=== PATIENT | female | born 1975 | race Two or more races ===

== ENCOUNTER 2017-11-22 12:36 | Inpatient (IN) | payer SELFPAY ==
[~2017-11-22] VITALS: Ht 162.6 cm; Wt 66.7 kg
[2017-11-22 15:23] LABS: CHLORIDE 104 mEq/L (98-107)
[2017-11-22 15:25] LABS: INR 1.1; PROTHROMBIN TIME 11.1 sec (9.4-11.6)
[2017-11-22 15:30] LABS: BASOPHILS % 0.8 % (0.0-2.0); HEMATOCRIT. 37.3 % (36.0-48.0); HEMOGLOBIN. 12.8 g/dL (12.0-16.0); LYMPHOCYTES % 39.7 % (20.0-50.0); MEAN CORPUSCULAR HEMOGLOBIN 28.8 pg (28.0-32.0); MEAN CORPUSCULAR VOLUME 84.3 fL (81.0-99.0); MONOCYTES % 7.7 % (2.0-8.0); NEUTROPHILS % 50.8 % (40.0-76.0); PLATELET 244 x1000/uL (130-400); RED BLOOD CELL COUNT 4.42 mill/uL (4.2-5.4); RED CELL DISTRIBUTION WIDTH 13.3 % (11.6-14.6)
[2017-11-22 15:32] LABS: AMMONIA 20 uMol/L (<32)
[2017-11-22 15:36] LABS: B-HCG QUANTITATIVE < 1 mIU/mL (<3)
[2017-11-22] MEDS ORDERED: ACETAMINOPHEN 325MG TABLET PO ONE (16:30)
[2017-11-22 16:59] LABS: CLARITY URINE CLEAR (CLEAR); COLOR URINE YELLOW (YELLOW); KETONES URINE NEGATIVE (NEGATIVE); LEUKOCYTE ESTERASE URINE 3+ (NEGATIVE); NITRITE URINE NEGATIVE (NEGATIVE); OCCULT BLOOD URINE 2+ (NEGATIVE); PROTEIN URINE TRACE (NEGATIVE); SPECIFIC GRAVITY URINE 1.018 (1.005-1.030); UROBILINOGEN URINE 0.2 E.U./dL (0.2-1.0)
[2017-11-22 17:16] LABS: *AMPHETAMINES SCREEN URINE NEGATIVE (NEGATIVE); *BARBITURATES SCREEN URINE NEGATIVE (NEGATIVE); *BENZODIAZEPINES SCREEN URINE NEGATIVE (NEGATIVE); *COCAINE SCREEN URINE NEGATIVE (NEGATIVE); METHADONE URINE SCREEN NEGATIVE (NEGATIVE)
[2017-11-22 17:17] LABS: CANNABINOID URINE SCREEN NEGATIVE (NEGATIVE); PHENCYCLIDINE URINE SCREEN NEGATIVE (NEGATIVE)
[2017-11-22 17:19] LABS: OPIATES URINE SCREEN NEGATIVE (NEGATIVE)
[2017-11-22] MEDS ORDERED: ACETAMINOPHEN 325MG TABLET PO NR (18:45)
[2017-11-22] MEDS ORDERED: LEVOFLOXACIN 500MG PREMIX 100 ML IV ONE (19:15)
[2017-11-22 20:50] VITALS: BP 142/92
[2017-11-22] MEDS: SODIUM CHLORIDE 0.9% 1,000 ML IV SCH (23:45)
[2017-11-23] VITALS: BP 118/80
[2017-11-23] MEDS ORDERED: HYDROCODONE/ACETAMINOPHEN 5/325MG TABLET PO PRN (00:15)
[2017-11-23] MEDS ORDERED: ACETAMINOPHEN 650MG/20.3ML UDC GT PRN (00:15)
[2017-11-23] MEDS ORDERED: MAGNESIUM/ALUMINUM HYDROXIDE/SIMETHICONE 30ML UDC PO PRN (00:15)
[2017-11-23] MEDS ORDERED: IPRATROPIUM/ALBUTEROL 0.5-3(2.5)MG/3ML NEB INH PRN ×2 (00:15→00:30)
[2017-11-23] MEDS ORDERED: GUAIFENESIN 200MG/10ML SUGAR FREE UDC PO PRN (00:15)
[2017-11-23] MEDS ORDERED: DOCUSATE SODIUM 100MG CAPSULE PO PRN (00:15)
[2017-11-23] MEDS ORDERED: ACETAMINOPHEN 650MG SUPP PR PRN (00:15)
[2017-11-23] MEDS ORDERED: NA PHOS,M-B/NA PHOS,DI-BA ENEMA 118ML PR PRN (00:15)
[2017-11-23] MEDS ORDERED: ONDANSETRON HCL 4MG/2ML VIAL IV PRN (00:15)
[2017-11-23] MEDS ORDERED: DIPHENHYDRAMINE 50MG/ML VIAL IV PRN (00:15)
[2017-11-23] MEDS ORDERED: CLONIDINE 0.1MG TABLET PO PRN (00:15)
[2017-11-23 04:00] VITALS: BP 120/80
[2017-11-23] MEDS ORDERED: SODIUM CHLORIDE 0.9% INJ 3ML FLUSH IVF SCH (06:00)
[2017-11-23] MEDS: ACETAMINOPHEN 325MG TABLET PO PRN ×2 (06:45→15:17)
[2017-11-23 07:14] LABS: BASOPHILS % 0.9 % (0.0-2.0); EOSINOPHILS % 2.2 % (0.0-5.0); HEMOGLOBIN. 13.1 g/dL (12.0-16.0); LYMPHOCYTES % 40.4 % (20.0-50.0); MEAN CORPUSCULAR HEMOGLOBIN 28.3 pg (28.0-32.0); MEAN CORPUSCULAR VOLUME 84.1 fL (81.0-99.0); MEAN PLATELET VOLUME 8.6 fl (7.4-10.4); MONOCYTES % 4.9 % (2.0-8.0); NEUTROPHILS % 51.6 % (40.0-76.0); PLATELET 235 x1000/uL (130-400); RED BLOOD CELL COUNT 4.63 mill/uL (4.2-5.4); RED CELL DISTRIBUTION WIDTH 13.7 % (11.6-14.6)
[2017-11-23 07:29] LABS: CHLORIDE 104 mEq/L (98-107)
[2017-11-23 07:39] LABS: LDL CHOLESTEROL 93 mg/dL (5-100)
[2017-11-23 07:40] LABS: CREATINE KINASE 51 IU/L (26-192); HDL CHOLESTEROL 54 mg/dL (40-59)
[2017-11-23 07:43] LABS: CREATINE KINASE MB FRACTION < 0.5 ng/mL (0.5-3.6)
[2017-11-23 08:00] VITALS: BP 128/82
[2017-11-23] MEDS: ENOXAPARIN 40MG/0.4ML SYR SUBCUT SCH (09:00)
[2017-11-23 12:00] VITALS: BP_SYST 121; BP_SYST 122; BP_SYST 125; BP_DIAS 80; BP_DIAS 81
[2017-11-23 16:00] VITALS: BP 125/81
[2017-11-23 16:20] LABS: CREATINE KINASE 42 IU/L (26-192)
[2017-11-23 16:21] LABS: CREATINE KINASE MB FRACTION < 0.5 ng/mL (0.5-3.6)
[2017-11-23 16:26] LABS: T4 FREE 0.89 ng/dL (0.76-1.46)
[2017-11-23] MEDS ORDERED: KETOROLAC 15MG/ML VIAL IV SCH (20:00)
[2017-11-23] MEDS ORDERED: LEVOFLOXACIN 500MG PREMIX 100 ML IV SCH (20:00)
[2017-11-23 20:04] VITALS: BP 131/87
[2017-11-23] MEDS: SODIUM CHLORIDE 0.9% 1,000 ML IV SCH (20:04)
[2017-11-23] MEDS: HYDROCODONE/ACETAMINOPHEN 10/325MG TABLET PO PRN (20:04)
[2017-11-23] MEDS: SODIUM CHLORIDE 0.9% INJ 3ML FLUSH IVF SCH (20:16)
[2017-11-24] VITALS: BP 125/70
[2017-11-24 00:25] LABS: CLARITY URINE CLEAR (CLEAR); COLOR URINE YELLOW (YELLOW); KETONES URINE NEGATIVE (NEGATIVE); LEUKOCYTE ESTERASE URINE 2+ (NEGATIVE); NITRITE URINE NEGATIVE (NEGATIVE); OCCULT BLOOD URINE 1+ (NEGATIVE); PROTEIN URINE NEGATIVE (NEGATIVE); SPECIFIC GRAVITY URINE 1.008 (1.005-1.030); UROBILINOGEN URINE 0.2 E.U./dL (0.2-1.0)
[2017-11-24 00:51] LABS: *AMPHETAMINES SCREEN URINE NEGATIVE (NEGATIVE); *BARBITURATES SCREEN URINE NEGATIVE (NEGATIVE); *BENZODIAZEPINES SCREEN URINE NEGATIVE (NEGATIVE); *COCAINE SCREEN URINE NEGATIVE (NEGATIVE)
[2017-11-24 00:52] LABS: CANNABINOID URINE SCREEN NEGATIVE (NEGATIVE); METHADONE URINE SCREEN NEGATIVE (NEGATIVE); PHENCYCLIDINE URINE SCREEN NEGATIVE (NEGATIVE)
[2017-11-24 01:02] LABS: OPIATES URINE SCREEN PRESUMTIVE POSITIVE (NEGATIVE)
[2017-11-24 04:00] VITALS: BP 124/76
[2017-11-24] MEDS: SODIUM CHLORIDE 0.9% INJ 3ML FLUSH IVF SCH ×2 (05:09→16:48)
[2017-11-24 05:35] LABS: BASOPHILS % 0.5 % (0.0-2.0); EOSINOPHILS % 2.4 % (0.0-5.0); HEMOGLOBIN. 12.8 g/dL (12.0-16.0); LYMPHOCYTES % 37.1 % (20.0-50.0); MEAN CORPUSCULAR HEMOGLOBIN 28.4 pg (28.0-32.0); MEAN CORPUSCULAR VOLUME 84.6 fL (81.0-99.0); MEAN PLATELET VOLUME 8.4 fl (7.4-10.4); MONOCYTES % 7.6 % (2.0-8.0); NEUTROPHILS % 52.4 % (40.0-76.0); PLATELET 232 x1000/uL (130-400); RED BLOOD CELL COUNT 4.49 mill/uL (4.2-5.4); RED CELL DISTRIBUTION WIDTH 13.9 % (11.6-14.6)
[2017-11-24 06:14] LABS: CHLORIDE 105 mEq/L (98-107)
[2017-11-24 06:22] LABS: HDL CHOLESTEROL 51 mg/dL (40-59)
[2017-11-24 06:25] LABS: LDL CHOLESTEROL 90 mg/dL (5-100)
[2017-11-24] MEDS: ENOXAPARIN 40MG/0.4ML SYR SUBCUT SCH (08:34)
[2017-11-24] MEDS: HYDROCODONE/ACETAMINOPHEN 10/325MG TABLET PO PRN (08:57)
[2017-11-24 09:00] VITALS: BP 136/89
[2017-11-24] MEDS: SODIUM CHLORIDE 0.9% 1,000 ML IV SCH (09:05)
[2017-11-24 12:29] VITALS: BP 128/89
[2017-11-24 16:58] VITALS: BP 144/86
[2017-11-24] MEDS ORDERED: NITR-87 MT (17:31)
[2017-11-24 18:04] VITALS: BP 144/86
[2017-11-24] MEDS ORDERED: LEVOFLOXACIN 500MG TABLET GT SCH (20:00)
== END 2017-11-24 18:53 | disposition home or self-care (01) | DRG 463 ==
LOC: ER 12:36 → 6WST 19:06 → ENRESERV 19:44
PROVIDERS: ADMIT Family Medicine; ATTEND Family Medicine
DX: N39.0 Urinary tract infection, site not specified (principal); R55 Syncope and collapse; E86.0 Dehydration; G43.909 Migraine, unspecified, not intractable, without status migrainosus; R26.81 Unsteadiness on feet; Z88.0 Allergy status to penicillin; Z87.440 Personal history of urinary (tract) infections
CPT/HCPCS: 36415; 70450; 70551; 71045; 80053; 80061; 80305; 81003; 82140; 82550; 82553; 83036; 83880; 84439; 84443; 84484; 84702; 85025; 85379; 85610; 87086; 93005; 93970; 96365; 99285; J1650; J1885; J1956; J7030